=== PATIENT | female | born 1960 ===

== ENCOUNTER 2024-09-27 08:15 | Inpatient (IN) | payer OTHER ==
[~2024-09-27] VITALS: Ht 170.2 cm; Wt 71.7 kg
[2024-09-27] MEDS ORDERED: LEVOTHYROXINE200 MC1 PO (09:13)
[2024-09-27] MEDS ORDERED: FLECAINIDE ACET50 MG (09:13)
[2024-09-27] MEDS ORDERED: LIPOFEN50 MG (09:14)
[2024-09-27] MEDS ORDERED: TOPROL XL25 M1 PO (09:14)
[2024-09-27 09:18] VITALS: BP 131/85
[2024-09-27 09:41] LABS: URINE APPEARANCE Cloudy; URINE BILIRRUBIN Negative (NEGATIVE); URINE BLOOD Negative; URINE COLOR Yellow; URINE GLUCOSE Negative (NEGATIVE); URINE KETONE Negative (NEGATIVE); URINE LEUKOCYTE Trace; URINE NITRATE Negative; URINE PROTEIN Negative (NEGATIVE); URINE UROBILINOGEN 0.2 E.U./dl
[2024-09-27 09:47] LABS: URINE BACTERIA 174.9 uL (0.0-1933); URINE EPITHELIAL CELLS 32.7 uL (0.0-38.8); URINE RBC 70.1 uL (0.0-20.8); URINE WBC 20.4 uL (0.0-23.2)
[2024-09-27 10:03] LABS: HEMATOCRIT 39.1 % (36.0-45.00); HEMOGLOBIN 13.3 g/dL (12.0-15.00); MEAN CELL VOLUME 88.1 fL (80.00-100.00); MEAN CORPUSCULAR HEMOGLOBIN 29.9 pg (27.00-32.0); MEAN CORPUSCULAR HGB CONC 33.9 g/dl (32.0-36.0); PLATELET COUNT 287 K/uL (150-450); RED BLOOD COUNT 4.44 M/uL (4.00-6.00); RED CELL DISTRIBUTION WIDTH 13.2 % (11.5-14.5)
[2024-09-27 10:07] LABS: PARTIAL THROMBOPLASTIN TIME 28.8 SECONDS (22.0-34.0); PROTHROMBIN TIME 10.9 SECONDS (9.0-11.5)
[2024-09-27 10:37] LABS: URINE CAST 0.58 uL (0.0-1.40)
[2024-09-27 10:39] LABS: URINE CRYSTALS MANY /HPF
[2024-09-27 11:03] LABS: ALBUMIN 3.7 gm/dL (3.4-5.0); BILIRUBIN TOTAL 0.43 mg/dL (0.3-1.2); CALCIUM 9.1 mg/dL (8.5-10.1); CREATININE SERUM 0.56 mg/dL (0.55-1.02); GFR 108.64; GLOBULINA 3.7 G/DL (2.4-3.5); POTASSIUM 4.18 mEq/L (3.5-5.1); TOTAL PROTEIN 7.4 gm/dL (6.4-8.2)
[2024-10-02] MEDS ORDERED: CEFAZOLIN SODIUM 1,000 MG VIAL ONE (07:06)
[2024-10-02] MEDS ORDERED: POVIDONE-IODINE 118 ML BOTT TOP ONE (07:18)
[2024-10-02] MEDS ORDERED: LIDOCAINE HCL 1%/EPINEPHRINE 20ML VIAL IJ ONE (07:53)
[2024-10-02] MEDS ORDERED: MORPHINE SULFATE 4 MG/ML VIAL IV ONE (11:35)
[2024-10-02] MEDS ORDERED: hydrALAZINE HCL 20 MG VIAL ONE (13:17)
[2024-10-02] MEDS ORDERED: hydrALAZINE HCL 20 MG VIAL IV ONE (13:20)
[2024-10-02] MEDS ORDERED: KETOROLAC TROMETHAMINE 10 MG TABLET PO SCH (14:00)
[2024-10-02 14:09] VITALS: BP 125/72
[2024-10-02] MEDS ORDERED: RINGERS SOLUTION,LACTATED 1,000 ML IV PUSH SCH (14:30)
[2024-10-02 16:00] VITALS: BP 132/80
[2024-10-02] MEDS ORDERED: ACETAMINOPHEN 500 MG GEL..CAP PO PRN (16:30)
[2024-10-02] MEDS ORDERED: ENALAPRILAT DIHYDRATE 1.25 MG/ML VIAL IV PRN (16:30)
[2024-10-02] MEDS ORDERED: ONDANSETRON HCL 2 MG/ML VIAL IV PRN (17:30)
[2024-10-02] MEDS ORDERED: FAMOTIDINE/PF 20 MG/2 ML VIAL ONE (19:53)
[2024-10-02] MEDS ORDERED: FAMOTIDINE/PF 20 MG in 0.9 % SODIUM CHLORIDE 8 ML IV PUSH SCH (21:00)
[2024-10-02] MEDS ORDERED: CEFAZOLIN SODIUM 1,000 MG VIAL IV SCH (21:00)
[2024-10-03 01:46] VITALS: BP 119/60
[2024-10-03] MEDS ORDERED: LEVOTHYROXINE SODIUM 200 MCG TABLET PO SCH (06:00)
[2024-10-03 08:00] VITALS: BP 132/60
[2024-10-03] MEDS ORDERED: FF) FLECAINIDE ACETATE 50MG TAB PO SCH (09:00)
[2024-10-03] MEDS ORDERED: METOPROLOL SUCCINATE 25 MG TAB.SR.24H PO SCH (09:00)
== END 2024-10-03 11:55 | disposition home or self-care (01) | DRG 748 ==
LOC: O/R 10-02 05:02 → OB/GYN 10-02 05:02 → SURH 10-02 07:00 → OB/GYN 10-02 10:31
PROVIDERS: ADMIT Obstetrics & Gynecology; ATTEND Obstetrics & Gynecology
PROC: 0JQC0ZZ Repair Pelvic Region Subcutaneous Tissue and Fascia, Open Approach (ICD-10-PCS; principal; 2024-10-02 07:00)
DX: N81.3 Complete uterovaginal prolapse (principal); N39.3 Stress incontinence (female) (male)